=== PATIENT | male | born 1955 | race American Indian/Alaskan Native ===

== ENCOUNTER 2020-11-07 06:15 | Day surgery (SDC) | payer BC ==
[2020-11-01 12:28] LABS: CLARITY,URINE CLEAR (Clear); COLOR,URINE YELLOW (Yellow); GLUCOSE, URINE 250 mg/dl (Neg); KETONES,URINE NEGATIVE (Neg); LEUKOCYTE ESTERASE ,URINE NEGATIVE (Neg); NITRITES, URINE NEGATIVE (Neg); OCCULT BLOOD,URINE NEGATIVE (Neg); PH,URINE 6.5 (4.8-8.0); PROTEIN,URINE TRACE mg/dl (Neg)
[2020-11-01 12:30] LABS: UA COLLECTION TYPE CLN CATCH MIDSTREAM
[2020-11-01 12:33] LABS: BASOPHILS # (AUTO) 0.1 X10'3 (0-0.2); BASOPHILS % (AUTO) 0.7 % (0-1); EOSINOPHILS # (AUTO) 0.2 X10'3 (0-0.9); EOSINOPHILS % (AUTO) 2.1 % (0-6); LYMPHOCYTES # (AUTO) 0.9 X10'3 (1.1-4.8); LYMPHOCYTES % (AUTO) 11.7 % (21-51); MEAN CORPUSCULAR HEMOGLOBIN 29.1 PG (27.0-31.0); MEAN CORPUSCULAR HGB CONC 34.2 g/dL (33.0-36.5); MEAN CORPUSCULAR VOLUME 84.9 FL (78-98); MEAN PLATELET VOLUME 9.3 FL (7.4-10.4); MONOCYTES # (AUTO) 0.5 X10'3 (0-0.9); NEUTROPHILS # (AUTO) 5.8 X10'3 (1.8-7.7); NEUTROPHILS % (AUTO) 78.5 % (42-75); PRE OP HEMATOCRIT 46.2 % (42.0-52.0); PRE OP HEMOGLOBIN 15.8 g/dL (14.0-17.9); PRE OP PLATELET COUNT 217 X10'3 (140-440); RED BLOOD COUNT 5.44 X10'6 (4.70-6.10)
[2020-11-01 12:40] LABS: SQUAMOUS EPITHELIAL CELL,UR FEW /LPF (FEW)
[2020-11-01 12:42] LABS: ALBUMIN 3.4 G/DL (3.4-5.0); ALBUMIN/GLOBULIN RATIO 0.9 (1.1-1.5); ALKALINE PHOSPHATASE 130 IU/L (46-116); BLOOD UREA NITROGEN 13 MG/DL (7-18); BUN/CREATININE RATIO 14.6 (5.4-32.0); CALCIUM 8.1 MG/DL (8.5-10.1); CHLORIDE 103 MMOL/L (99-107); CREATININE 0.89 MG/DL (0.60-1.10); PRE OP ALT 27 U/L (30-65); PRE OP ANION GAP 6 (8-16); PRE OP AST 19 U/L (10-37); PRE OP BILIRUB, TOTAL 0.4 MG/DL (0.0-1.0); PRE OP SODIUM 140 MMOL/L (135-145); TOTAL CARBON DIOXIDE 31.2 MMOL/L (24-32); TOTAL PROTEIN 7.4 G/DL (6.4-8.2); eGFR 86 ML/MIN
[2020-11-01 12:43] LABS: BACTERIA,URINE FEW /HPF (Neg); RBC,URINE 0-2 /HPF (0-2); WBC,URINE NONE SEEN /HPF (0-4)
[2020-11-01 13:06] LABS: PRE OP GLUCOSE 204 MG/DL (70-104)
[~2020-11-07] VITALS: Ht 172.7 cm; Wt 147.5 kg
[~2020-11-07 06:15] MED LIST: DILT300C51 PO; INSU100I31 SQ; METF-950 PO; WARF-55 PO; albuterol 2.5 MG/3 ML nebule NEB ONE; ceFAZolin inj. 3,000 MG in normal saline 100ml IV soln 100 ML IV ONE; famotidine 20mg tablet PO ONE; ringers solution, lacted 1,000 ML IV SCH
[2020-11-07] MEDS ORDERED: BUPIVAcaine/PF 2.5 mg/ml (0.25%) 30ml vial ONE (06:43)
[2020-11-07 06:45] VITALS: BP 152/75
[2020-11-07 08:03] LABS: PARTIAL THROMBOPLASTIN TIME 41 SECONDS (22-32)
== END 2020-11-07 23:59 | disposition home or self-care (01) ==
LOC: PAS 06:15
PROVIDERS: ATTEND Surgery
DX: K42.9 Umbilical hernia without obstruction or gangrene (principal); D17.5 Benign lipomatous neoplasm of intra-abdominal organs; I48.0 Paroxysmal atrial fibrillation; I50.9 Heart failure, unspecified; I50.32 Chronic diastolic (congestive) heart failure; G47.30 Sleep apnea, unspecified; E66.01 Morbid (severe) obesity due to excess calories; Z68.42 Body mass index [BMI] 45.0-49.9, adult; E55.9 Vitamin D deficiency, unspecified; E11.9 Type 2 diabetes mellitus without complications; J43.9 Emphysema, unspecified; M19.90 Unspecified osteoarthritis, unspecified site; Z79.899 Other long term (current) drug therapy; Z79.4 Long term (current) use of insulin; Z88.8 Allergy status to other drugs, medicaments and biological substances; Z86.718 Personal history of other venous thrombosis and embolism; F17.210 Nicotine dependence, cigarettes, uncomplicated; Z72.89 Other problems related to lifestyle; Z87.01 Personal history of pneumonia (recurrent)
CPT/HCPCS: 36415; 49652; 71046; 80053; 81001; 82948; 85025; 85610; 85730; 93005; 93306; 94640; 94760; J0690; J3490; J7120